=== PATIENT | male | born 1980 | race Caucasian/White ===

== ENCOUNTER → 2019-03-25 | Outpatient (CLI) | payer BC | END | disposition home or self-care (01) | LOC: PLD 07:28 → LAB SHORT 07:28 | DX: L28.1 Prurigo nodularis (principal) | CPT/HCPCS: 88305 ==

== ENCOUNTER 2019-07-01 10:42 | Day surgery (SDC) | payer BC ==
[~2019-07-01] VITALS: Ht 188 cm; Wt 127.9 kg
[~2019-07-01 10:42] MED LIST: CLOB.05TO
== END 2019-07-01 12:11 | disposition home or self-care (01) ==
LOC: ORSCSDS 10:42
PROVIDERS: Internal Medicine Gastroenterology
PROC: 0D758ZZ Dilation of Esophagus, Via Natural or Artificial Opening Endoscopic (ICD-10-PCS; principal; 2019-07-01 12:00)
PROC: 0DB58ZX Excision of Esophagus, Via Natural or Artificial Opening Endoscopic, Diagnostic (ICD-10-PCS; principal; 2019-07-01 12:00)
DX: R13.10 Dysphagia, unspecified (principal); K20.0 Eosinophilic esophagitis; D13.0 Benign neoplasm of esophagus; K22.2 Esophageal obstruction; R12 Heartburn
CPT/HCPCS: 88305; C1726; J2250; J2704; J7120

== ENCOUNTER 2020-03-11 07:46 | Day surgery (SDC) | payer BC ==
[~2020-03-11] VITALS: Ht 188 cm; Wt 121.6 kg
[~2020-03-11 07:46] MED LIST changes: +Flovent 220 Ora12 GM; +OMEP20ER PO
== END 2020-03-12 09:55 | disposition home or self-care (01) ==
LOC: ORSCSDS 07:46
DX: K20.0 Eosinophilic esophagitis (principal); K22.2 Esophageal obstruction; R13.10 Dysphagia, unspecified; E78.00 Pure hypercholesterolemia, unspecified; K44.9 Diaphragmatic hernia without obstruction or gangrene; Z79.899 Other long term (current) drug therapy
CPT/HCPCS: 88305; J2250; J2704; J7120